=== PATIENT | female | born 1935 | race Caucasian/White ===

== ENCOUNTER 2021-08-30 22:15 | Emergency (ER) | payer MEDICARE, OTHER ==
[~2021-08-30] VITALS: Ht 152.4 cm; Wt 71.7 kg
[~2021-08-30 22:15] MED LIST: HYDR12.5 PO; LEVO50TA PO; PRAV10TA40 PO
--- NOTE | 2021-08-30 22:30 | NUR ---
PT BIBS C/O HAVING PALPITATIONS X1 HOUR AGO. PT STATES "FEELING STRESSED AFTER WATCHING OVER " PT DENIES CHEST PAIN AND SOB. ALERT AND ORIENTED X3. AMBULATORY WITH NON LABORED BREATHING.
[2021-08-30] MEDS ORDERED: DILTIAZEM HCL 50 MG IV ONE (22:44)
[2021-08-30 22:48] LABS: BASOPHILS % (AUTO) 0.6 % (0.0-2.0); EOSINOPHILS % (AUTO) 2.7 % (0.0-6.0); HEMATOCRIT 41 % (33-45); HEMOGLOBIN 13.4 g/dL (11.5-14.8); LYMPHOCYTES # (AUTO) 2.6 K/uL (0.8-4.8); LYMPHOCYTES % (AUTO) 37.4 % (20.0-44.0); MEAN CORPUSCULAR HGB CONC 33 g/dl (31.0-36.0); MEAN CORPUSCULAR VOLUME 91 fL (82-100); MONOCYTES # (AUTO) 0.6 K/uL (0.1-1.30); MONOCYTES % (AUTO) 8.4 % (2.0-12.0); NEUTROPHILS # (AUTO) 3.5 K/uL (1.8-8.9); NEUTROPHILS % (AUTO) 50.9 % (43.0-81.0); PLATELET COUNT (AUTO) 196 K/uL (150-450); RED BLOOD CELL COUNT(AUTO) 4.53 MIL/uL (4.0-5.2); WHITE BLOOD COUNT (AUTO) 6.9 K/uL (4.3-11.0)
[2021-08-30] MEDS ORDERED: DILTIAZEM HCL 50 MG IV IV ONE (23:00)
[2021-08-30 23:04] LABS: CALCIUM, SERUM 8.7 mg/dL (8.5-10.1); CARBON DIOXIDE 25 mmol/L (21-32); CHLORIDE 105 mmol/L (98-107); CREATININE 1.5 mg/dL (0.6-1.3); GLUCOSE 152 mg/dL (74-106); POTASSIUM 4.1 mmol/L (3.5-5.1); SODIUM SERUM 139 mmol/L (136-145); UREA NITROGEN, BLOOD 21 mg/dL (7-18)
[2021-08-31 00:44] VITALS: BP 105/70
--- NOTE | 2021-08-31 00:49 | NUR ---
Patient discharged to home in stable condition. Written and verbal after care instructions given. Patient verbalizes understanding of instruction.
== END 2021-08-31 00:45 | disposition home or self-care (01) ==
LOC: ER 22:23
DX: I48.20 Chronic atrial fibrillation, unspecified (principal); R94.4 Abnormal results of kidney function studies; I10 Essential (primary) hypertension; F41.9 Anxiety disorder, unspecified; Z96.643 Presence of artificial hip joint, bilateral; Z60.2 Problems related to living alone; Z79.899 Other long term (current) drug therapy
CPT/HCPCS: 36415; 71045; 80048; 84484; 85025; 93005; 96374; 99285; J3490

== ENCOUNTER 2024-11-17 15:28 | Emergency (ER) | payer MEDICARE, OTHER ==
[~2024-11-17] VITALS: Ht 152.4 cm; Wt 66.2 kg
[2024-11-17] MEDS: IV NS 0.9% 500 ML BAG IV ONE (16:15)
[2024-11-17] MEDS: ONDANSETRON HCL/PF 4 MG/2 ML VIAL IVP ONE (16:25)
[2024-11-17 16:26] LABS: CALCIUM, SERUM 9.1 mg/dL (8.5-10.1); CREATININE 1.3 mg/dL (0.6-1.3); POTASSIUM 4.7 mmol/L (3.5-5.1)
[2024-11-17 16:27] LABS: BASOPHILS % (AUTO) 0.2 % (0.0-2.0); EOSINOPHILS # (AUTO) 0.1 K/uL (0.0-0.7); EOSINOPHILS % (AUTO) 0.9 % (0.0-6.0); HEMATOCRIT 41 % (33-45); HEMOGLOBIN 13.8 g/dL (11.5-14.8); LYMPHOCYTES # (AUTO) 1.6 K/uL (0.8-4.8); LYMPHOCYTES % (AUTO) 24.4 % (20.0-44.0); MEAN CORPUSCULAR HEMOGLOBIN 30 PG (26.0-33.0); MEAN CORPUSCULAR HGB CONC 34 g/dl (31.0-36.0); MEAN CORPUSCULAR VOLUME 89 fL (82-100); MONOCYTES # (AUTO) 0.4 K/uL (0.1-1.30); MONOCYTES % (AUTO) 6.4 % (2.0-12.0); NEUTROPHILS # (AUTO) 4.4 K/uL (1.8-8.9); NEUTROPHILS % (AUTO) 68.1 % (43.0-81.0); PLATELET COUNT (AUTO) 189 K/uL (150-450); RED BLOOD CELL COUNT(AUTO) 4.57 MIL/uL (4.0-5.2); RED CELL DISTRIBUTION WIDTH 15.3 % (11.5-15.0); WHITE BLOOD COUNT (AUTO) 6.5 K/uL (4.3-11.0)
[2024-11-17 16:32] LABS: ALBUMIN 3.4 g/dL (3.4-5.0); BILIRUBIN,DIRECT 0.1 mg/dL (0.0-0.2); BILIRUBIN,TOTAL 0.5 mg/dL (0.2-1.0); TOTAL PROTEIN, SERUM 6.8 g/dL (6.4-8.2)
[2024-11-17] MEDS ORDERED: ONDANSETRON HCL/PF 4 MG/2 ML VIAL ONE (16:54)
[2024-11-17] MEDS ORDERED: ONDA4TAB5 PO (18:33)
[2024-11-17 19:31] VITALS: BP 135/57; TEMP 97.9; O2SAT 97
== END 2024-11-17 19:55 | disposition home or self-care (01) ==
LOC: ER 15:34
DX: K52.9 Noninfective gastroenteritis and colitis, unspecified (principal); K57.30 Diverticulosis of large intestine without perforation or abscess without bleeding; E07.9 Disorder of thyroid, unspecified; E78.5 Hyperlipidemia, unspecified; I10 Essential (primary) hypertension; F41.9 Anxiety disorder, unspecified; Z79.899 Other long term (current) drug therapy; Z85.818 Personal history of malignant neoplasm of other sites of lip, oral cavity, and pharynx; Z85.828 Personal history of other malignant neoplasm of skin; Z96.643 Presence of artificial hip joint, bilateral; Z86.79 Personal history of other diseases of the circulatory system
CPT/HCPCS: 99285; 74176; 96374; 85025; 80048; 83690; 80076; 36415; J2405; J7030

== ENCOUNTER 2025-10-11 17:51 | Emergency (ER) | payer MEDICARE, OTHER ==
[~2025-10-11] VITALS: Ht 152.4 cm; Wt 65.8 kg
[~2025-10-11 17:51] MED LIST changes: +ONDA4TAB5 PO
[2025-10-11 19:47] VITALS: BP 149/65; TEMP 98; O2SAT 95
== END 2025-10-11 19:47 | disposition home or self-care (01) ==
LOC: ER 18:14
DX: M17.12 Unilateral primary osteoarthritis, left knee (principal); I11.9 Hypertensive heart disease without heart failure; Z79.899 Other long term (current) drug therapy; Z85.818 Personal history of malignant neoplasm of other sites of lip, oral cavity, and pharynx; Z85.828 Personal history of other malignant neoplasm of skin; Z96.643 Presence of artificial hip joint, bilateral
CPT/HCPCS: 73564-TC; 93971-TC